=== PATIENT | female | born 1950 | race Caucasian/White ===

== ENCOUNTER 2017-02-01 21:06 | Emergency (ER) | payer OTHER ==
--- NOTE | 2017-02-01 21:25 | PDOC ---
History of Present Illness - History of Present Illness Initial Comments: 02/01/17 22:56 The patient is 66 year old female with a past medical hx of HTN, HLD, and breast cancer s/p mastectomy who presents to the ED complaining of diffuse abdominal pain since this evening. The patient notes the pain came on all of a sudden and is very severe. She reports associated nausea but denies any vomiting. The patient denies fever, chills The patient denies chest pain, SOB Surgical: Colon and mastectomy Allergies: NKDA <Gail Dumont - Last Filed: 02/02/17 00:20> <Rianna Mejia - Last Filed: 02/02/17 01:38> - General Stated Complaint: ABDOMINAL PAIN Time Seen by Provider: 02/01/17 21:17 Past History <Gail Dumont - Last Filed: 02/02/17 00:20> - Past Medical History Anemia: No Asthma: No Cancer: Yes (Colon Ca, Abelardo Breast Ca) Cardiac Disorders: No CVA: No COPD: No CHF: No Dementia: No Diabetes: No GI Disorders: No Disorders: No HTN: Yes Hypercholesterolemia: Yes Liver Disease: No Seizures: No Thyroid Disease: No - Surgical History Abdominal Surgery: Yes (Colon Resection 1999) Appendectomy: No Cardiac Surgery: No Cholecystectomy: No Lung Surgery: No Neurologic Surgery: No Orthopedic Surgery: No - Psycho/Social/Smoking Cessation Hx Anxiety: No Suicidal Ideation: No Smoking Status: No Smoking History: Never smoked Have you smoked in the past 12 months: No Number of Cigarettes Smoked Daily: 0 Hx Alcohol Use: No Drug/Substance Use Hx: No Substance Use Type: None Hx Substance Use Treatment: No <Rianna Mejia - Last Filed: 02/02/17 01:38> - Past Medical History Allergies/Adverse Reactions: Allergies Allergy/AdvReac Type Severity Reaction Status Date / Time No Known Allergies Allergy Verified 02/01/17 21:31 Home Medications: Ambulatory Orders Atorvastatin Ca [Lipitor] 20 mg PO DAILY 07/24/13 Losartan Potassium [Cozaar] 50 mg PO DAILY 07/24/13 Review of Systems - Review of Systems Able to Perform ROS?: Yes Comments:: 02/01/17 22:57 CONSTITUTIONAL: Absent: fever, chills, diaphoresis, generalized weakness, malaise, loss of appetite HEENT: Absent: rhinorrhea, nasal congestion, throat pain, throat swelling, difficulty swallowing, mouth swelling, ear pain, eye pain, visual Changes CARDIOVASCULAR: Absent: chest pain, syncope, palpitations, irregular heart rate, lightheadedness , peripheral edema RESPIRATORY: Absent: cough, shortness of breath, dyspnea with exertion, orthopnea, wheezing, stridor, hemoptysis GASTROINTESTINAL: +Abdominal pain, nausea. Absent: abdominal distension, vomiting, diarrhea, constipation, melena, hematochezia GENITOURINARY: Absent: dysuria, frequency, urgency, hesitancy, hematuria, flank pain, genital pain MUSCULOSKELETAL: Absent: myalgia, arthralgia, joint swelling SKIN: Absent: rash, itching, pallor NEUROLOGIC: Absent: headache, focal weakness or paresthesias, dizziness, unsteady gait, seizure, mental status changes, bladder or bowel incontinence PSYCHIATRIC: Absent: anxiety, depression, suicidal or homicidal ideation, hallucinations. <Gail Dumont - Last Filed: 02/02/17 00:20> *Physical Exam - Vital Signs Last Vital Signs Temp Pulse Resp BP Pulse Ox 97.0 F L 78 14 143/72 100 02/01/17 21:32 02/01/17 21:32 02/01/17 21:32 02/01/17 21:32 02/01/17 21:32 - Physical Exam Comments: 02/01/17 22:57 GENERAL: +Appears uncomfortable. Well developed, well nourished. Awake and alert. HEENT: Normocephalic, atraumatic. PERRLA, EOMI. No conjunctival pallor. Sclera are non- icteric. Moist mucous membranes. Oropharynx is clear. NECK: Supple. Full ROM. No JVD. Carotid pulses 2+ and symmetric, without bruits. No thyromegaly. No lymphadenopathy. CARDIOVASCULAR: Regular rate and rhythm. No murmurs, rubs, or gallops. Distal pulses are 2+ and symmetric. PULMONARY: No evidence of respiratory distress. Lungs clear to auscultation bilaterally. No wheezing, rales or rhonchi. ABDOMINAL: +Mild diffuse tenderness. Soft. Non-distended. No rebound or guarding. No organomegaly. Normoactive bowel sounds. MUSCULOSKELETAL Normal range of motion at all joints. No bony deformities or tenderness. No CVA tenderness. EXTREMITIES: No cyanosis. No clubbing. No edema. No calf tenderness. SKIN: Warm and dry. Normal capillary refill. No rashes. No jaundice. NEUROLOGICAL: Alert, awake, appropriate. Cranial nerves 2-12 intact. No deficits to light touch and temperature in face, upper extremities and lower extremities. No motor deficits in the in face, upper extremities and lower extremities. PSYCHIATRIC: Cooperative. Good eye contact. Appropriate mood and affect. <Gail Dumont - Last Filed: 02/02/17 00:20> Heart Score/ECG Review - ECG Impressions Comment:: 02/01/17 23:53 EKG performed at 22:19 NSR at a rate of 70 BPM <Gail Dumont - Last Filed: 02/02/17 00:20> ED Treatment Course - LABORATORY CBC & Chemistry Diagram: 02/01/17 21:42 02/01/17 21:42 - ADDITIONAL ORDERS Additional order review: Laboratory Results 02/01/17 02/01/17 02/01/17 21:42 21:42 21:42 INR 1.01 Sodium Potassium Chloride Carbon Dioxide Anion Gap BUN Creatinine Creat Clearance w eGFR Random Glucose Lactic Acid 1.166 Calcium Total Bilirubin AST ALT Alkaline Phosphatase Creatine Kinase 124 Troponin I < 0.02 Total Protein Albumin Lipase 02/01/17 21:42 INR Sodium 140 Potassium 5.5 H D Chloride 100 Carbon Dioxide 33 H Anion Gap 7 L BUN 18 D Creatinine 0.9 D Creat Clearance w eGFR > 60 Random Glucose 140 H D Lactic Acid Calcium 9.3 Total Bilirubin 0.5 AST 118 H D ALT 67 D Alkaline Phosphatase 72 D Creatine Kinase Troponin I Total Protein 6.7 Albumin 3.7 Lipase 220 02/01/17 21:42 RBC 4.48 MCV 82.8 MCHC 33.4 RDW 14.5 MPV 7.2 L Neutrophils % 72.6 D Lymphocytes % 19.5 D Monocytes % 6.7 Eosinophils % 0.7 Basophils % 0.5 - RADIOLOGY Radiograph Interpretation: 02/01/17 23:09 Portable chest x ray A frontal view of the chest was obtained. Compared to prior chest x-ray dated 10/19/2016 The cardiac silhouette is within normal limits in size. The lung is clear. There are multiple surgical metallic clips projecting over the left hemithorax and right axilla. Mediastinum and visualized osseous structures appear intact . Impression: Unremarkable examination without evidence of acute lung disease Reported By: Meet Cerrato MD 02/01/17 2230 02/02/17 00:20 CT angiogram of the abdomen pelvis A post intravenous contrast CT angiogram of the abdomen pelvis was performed in arterial and venous phase. Coronal and sagittal reformatted as well as minute images were obtained. Compared to prior CT scan of the abdomen pelvis dated 01/23/2016 There are atheromatous calcified plaques in the distal abdominal aorta wall. There is normal enhancement of the distal thoracic and abdominal aorta down through its bifurcation without evidence of aneurysmal dilatation or dissection. Normal enhancement of the celiac and superior mesenteric artery as well as their branches. Normal enhancement of a right and double left renal artery. The inferior mesenteric artery is not clearly delineated. Included lower lung appears unremarkable. Status post cholecystectomy. The liver and spleen are within normal limits in size. Mild dilatation of central intrahepatic bile ducts are present. The stomach is adequately distended without wall thickening. Evaluation of the pancreas, both adrenal glands and both kidneys appear unremarkable.There is no evidence of small bowel obstruction or wall thickening. Normal-appearing terminal ileum and appendix. Moderate amount of fecal residue in the entire colon suggestive of constipation. Surgical sutures again noted around the rectosigmoid junction and multiple surgical metallic clips in the pelvis. Normal size uterus. Partially distended urinary bladder without wall thickening. Moderate degenerative disc disease at L5-S1 level. Visualized osseous structures appear intact. Mild degenerative changes in both hip joints. Impression: Normal enhancement of the abdominal aorta down through its bifurcation as well as normal enhancement of the celiac artery and superior mesenteric artery. Inferior mesenteric artery is not definitely delineated on this examination. There is no evidence of small bowel obstruction. Fluid-filled small bowel loops are the may represent ileus. There is no thickening of the small or large bowel wall to suggest ischemia. No free air or free fluid in the abdomen pelvis. Correlate clinically to determine further evaluation Reported By: Meet Cerrato MD 02/02/17 0006 - Medications Given in the ED: ED Medications Discontinued Medications Generic Name Dose Route Start Last Admin Trade Name Freq PRN Reason Stop Dose Admin Sodium Chloride 1,000 mls @ 1,000 mls/hr 02/01/17 21:30 02/01/17 21:51 Normal Saline - IV 02/01/17 22:29 1,000 mls/hr ASDIR STA Administration Piperacillin Sod/Tazobactam 50 mls @ 100 mls/hr 02/01/17 21:33 02/01/17 21:53 Sod 3.375 gm/ Dextrose IVPB 02/01/17 22:02 100 mls/hr ONCE ONE Administration Protocol Ondansetron HCl 4 mg 02/01/17 21:30 02/01/17 21:51 Zofran Injection IVPB 02/01/17 21:31 4 mg ONCE ONE Administration <Gail Dumont - Last Filed: 02/02/17 00:20> - LABORATORY CBC & Chemistry Diagram: 02/01/17 21:42 02/01/17 21:42 <Rianna Mejia - Last Filed: 02/02/17 01:38> Medical Decision Making - Medical Decision Making 02/02/17 01:17 this 66 yo fmeale dev sudden severe diffuse abd pain 30 minutes prior to arrival. BIBA with severe abd pain, pain out of proportion to exam -no focal abd pain but diffuse abd pain w nausea -she DENIED any sob,chest pain,fever,chills,back pain -she recently had dental work done and 30 minutes before she dev these symptoms she took her percocet and antibiotics psh mastectomy,cholecystectomy cbc is normal -no fever comp reviewed ,the k=5.5 ct scan abd/pel: NEGATIVE FOR ANY ISCHEMIA,there is no evidence for appendicitis, there is no sbo. there were no findings for acute abdominal or pelvic etoilogy - ekg was nsr @ 70 02/02/17 01:31 pt's abd pain completely resolved and she is requesting to go home <Rianna Mejia - Last Filed: 02/02/17 01:38> *DC/Admit/Observation/Transfer - Attestations Scribe Attestion: 02/01/17 22:56 Documentation prepared by Gail Dumont, acting as medical billing representative for Rianna Mejia MD/DO. <Gail Dumont - Last Filed: 02/02/17 00:20> <Rianna Mejia - Last Filed: 02/02/17 01:38> Diagnosis at time of Disposition: Abdominal pain Qualifiers: Abdominal location: generalized Qualified Code(s): R10.84 - Generalized abdominal pain - Discharge Dispostion Disposition: HOME Condition at time of disposition: Stable - Referrals Referrals: Jazz Robb [Primary Care Provider] - - Patient Instructions Printed Discharge Instructions: DI for Abdominal Pain-Adult Additional Instructions: You need to have your doctor repeat your labs to check your potassium level Return to the emergency department if you develop any worsening symptoms
[2017-02-01] MEDS ORDERED: ONDANSETRON 4 MG/2 ML VIAL IVPB ONE (21:30)
[2017-02-01] MEDS ORDERED: SODIUM CHLORIDE 1,000 ML IV STA (21:30)
[2017-02-01] MEDS ORDERED: PIPERACILLIN/TAZOB 3.375 GM 3.375 GM in DEXTROSE 5%-WATER - 50 ML IVPB ONE (21:33)
[2017-02-01 21:34] VITALS: PULSE 78; TEMP 97
[2017-02-01] MEDS ORDERED: ONDANSETRON 4 MG/2 ML VIAL ONE (21:36)
[2017-02-01] MEDS ORDERED: PIPERACILLIN/TAZOB 3.375 GM 50 ML IVPB ONE (21:37)
[2017-02-01 22:17] LABS: INR 1.01 (0.82-1.09); PROTHROMBIN TIME (PATIENT) 11.1 SEC (9.98-11.88)
[2017-02-01 22:19] LABS: BASOPHIL 0.5 % (0-2.0); EOSINOPHIL 0.7 % (0-4.5); MCH 27.6 pg (25.7-33.7); MCHC 33.4 g/dl (32.0-36.0); MEAN CELL VOLUME 82.8 fl (80-96); MEAN PLT VOLUME 7.2 fl (7.5-11.1); NEUTROPHILS 72.6 % (42.8-82.8); PLATELET COUNT 201 K/MM3 (134-434); RDW 14.5 % (11.6-15.6)
[2017-02-01 22:35] LABS: ALBUMIN 3.7 g/dl (3.4-5.0); ANION GAP 7 (8-16); CALCIUM 9.3 mg/dL (8.5-10.1); CO2 33 mmol/L (21-32); CREATININE 0.9 mg/dL (0.55-1.02); GLUCOSE,RANDOM 140 mg/dL (74-106); SGOT/AST 118 U/L (15-37); SGPT/ALT 67 U/L (12-78)
[2017-02-01 22:37] LABS: ALK PHOS 72 U/L (45-117); BILIRUBIN,TOTAL 0.5 mg/dL (0.2-1.0); TOT PROT 6.7 g/dl (6.4-8.2)
[2017-02-01 22:40] LABS: TROPONIN I < 0.02 ng/ml (0.00-0.05)
[2017-02-02] MEDS ORDERED: SODIUM POLYSTYRENE SULFONATE 15 GM/60 ML BOTTLE PO ONE (00:15)
[2017-02-02] MEDS ORDERED: SODIUM POLYSTYRENE SULFONATE 15 GM/60 ML BOTTLE ONE (00:18)
[2017-02-02 00:53] VITALS: BP 102/58
[2017-02-02] MEDS ORDERED: MAG HYDROX/AL HYDROX/SIMETH 30 ML UNIT-DOSE CUP PO ONE (01:06)
[2017-02-02] MEDS ORDERED: MAG HYDROX/AL HYDROX/SIMETH 30 ML UNIT-DOSE CUP ONE (01:36)
--- NOTE | 2017-02-02 14:11 | EKG ---
Test Reason : Blood Pressure : / mmHG Vent. Rate : 070 BPM Atrial Rate : 070 BPM P-R Int : 152 ms QRS Dur : 070 ms QT Int : 404 ms P-R-T Axes : 053 005 029 degrees QTc Int : 436 ms NORMAL SINUS RHYTHM NORMAL ECG WHEN COMPARED WITH ECG OF 19-OCT-2016 12:25, NO SIGNIFICANT CHANGE WAS FOUND Confirmed by SONNY PERALTA MD ([id number]) on 02/02/2017 2:11:08 PM Referred By: Confirmed By:SONNY PERALTA MD
== END 2017-02-02 01:39 | disposition home or self-care (01) ==
LOC: JER 21:06
PROC: 3E03329 Introduction of Other Anti-infective into Peripheral Vein, Percutaneous Approach (ICD-10-PCS; principal; 2017-02-01)
PROC: 3E033GC Introduction of Other Therapeutic Substance into Peripheral Vein, Percutaneous Approach (ICD-10-PCS; 2017-02-01)
PROC: 3E0337Z Introduction of Electrolytic and Water Balance Substance into Peripheral Vein, Percutaneous Approach (ICD-10-PCS; 2017-02-01)
DX: R10.84 Generalized abdominal pain (principal); I10 Essential (primary) hypertension; E78.5 Hyperlipidemia, unspecified; Z85.3 Personal history of malignant neoplasm of breast
CPT/HCPCS: 36415; 71010-TC; 74174-TC; 80053; 82550; 83605; 83690; 84484; 85025; 85610; 93005; 93010; 96361; 96365; 96375; 99282-25

== ENCOUNTER 2022-02-22 04:47 | Day surgery (SDC) | payer OTHER ==
[2022-02-17 11:25] VITALS: BMI 25.2
[2022-02-22 09:32] VITALS: TEMP 97
[2022-02-22 09:50] VITALS: PULSE 65
[2022-02-22 10:03] VITALS: BP 143/69
== END 2022-02-22 10:42 | disposition home or self-care (01) ==
LOC: JASU-ENDO 04:47
PROVIDERS: ATTEND Internal Medicine Gastroenterology
PROC: 0DBP8ZX Excision of Rectum, Via Natural or Artificial Opening Endoscopic, Diagnostic (ICD-10-PCS; principal; 2022-02-22 09:00)
DX: Z12.11 Encounter for screening for malignant neoplasm of colon (principal); K64.8 Other hemorrhoids; Z85.048 Personal history of other malignant neoplasm of rectum, rectosigmoid junction, and anus; Z98.0 Intestinal bypass and anastomosis status
CPT/HCPCS: 88305-TC

== ENCOUNTER 2024-01-09 04:15 | Day surgery (SDC) | payer OTHER ==
[2023-12-15 13:16] VITALS: BMI 24.7
[2024-01-09] MEDS ORDERED: LOSARTAN POTASSIUM 50 MG TABLET PO ONE (12:00)
[2024-01-09] MEDS: LOSARTAN POTASSIUM 50 MG TABLET PO ONE (12:15)
[2024-01-09] MEDS ORDERED: LIDOCAINE 1%/EPI 1:100000 (20 ML MULTI DOSE VIAL) ONE (13:51)
[2024-01-09] MEDS ORDERED: MIDAZOLAM HCL 2 MG/2 ML SINGLE DOSE VIAL ONE (14:13)
[2024-01-09] MEDS ORDERED: PROPOFOL 20 ML ONE (14:13)
[2024-01-09] MEDS ORDERED: ONDANSETRON 4 MG/2 ML VIAL ONE (14:42)
[2024-01-09] MEDS ORDERED: DEXAMETHASONE SOD PHOSPHATE 4 MG/1 ML VIAL ONE (14:42)
[2024-01-09] MEDS ORDERED: KETOROLAC TROMETHAMINE 30 MG/1 ML VIAL ONE (14:42)
[2024-01-09] MEDS ORDERED: ceFAZolin SODIUM 1 GM VIAL ONE (14:42)
[2024-01-09] MEDS: ceFAZolin SODIUM 1 GM VIAL IVPB ONE (14:44)
[2024-01-09] MEDS: LIDOCAINE 1%/EPI 1:100000 (50 ML MULTI DOSE VIAL) INF ONE (14:49)
[2024-01-09] MEDS ORDERED: ELECTROLYTE-148 SOLN 1,000 ML IV SCH (15:15)
[2024-01-09] MEDS ORDERED: oxyCODONE HCL 5 MG TABLET PO PRN (15:27)
[2024-01-09] MEDS ORDERED: ONDANSETRON 4 MG/2 ML VIAL IVPUSH PRN (15:27)
[2024-01-09] MEDS ORDERED: LACTATED RINGERS SOLUTION 1,000 ML IV SCH (15:30)
[2024-01-09 17:55] VITALS: RESP 18
[2024-01-09 18:26] VITALS: BP 172/87; PULSE 83; TEMP 97.3
== END 2024-01-09 18:45 | disposition home or self-care (01) ==
LOC: JASU-SURG 04:15
PROVIDERS: ATTEND Urology
PROC: 0TSD0ZZ Reposition Urethra, Open Approach (ICD-10-PCS; principal; 2024-01-09 14:00)
DX: N39.3 Stress incontinence (female) (male) (principal)
CPT/HCPCS: 57288; C1771; 94760

== ENCOUNTER 2024-10-07 12:01 | Emergency (ER) | payer OTHER ==
[2024-10-07 12:08] VITALS: BP 167/98; PULSE 76; RESP 18; TEMP 97.6; BMI 26.5
== END 2024-10-07 13:15 | disposition home or self-care (01) ==
LOC: JER 12:01
DX: H66.91 Otitis media, unspecified, right ear (principal); H92.01 Otalgia, right ear; R42 Dizziness and giddiness; H93.11 Tinnitus, right ear
CPT/HCPCS: 93005; 93010; 99283-25

== ENCOUNTER 2024-10-08 11:35 | Observation (INO) | payer OTHER ==
[2024-10-08 11:47] VITALS: RESP 18; BMI 26.5
[2024-10-08] MEDS ORDERED: MECLIZINE HCL 25 MG TABLET (FP) ONE (12:30)
[2024-10-08] MEDS ORDERED: ACETAMINOPHEN INJECTION 100 ML ONE (12:30)
[2024-10-08] MEDS ORDERED: ONDANSETRON 4 MG/2 ML VIAL ONE (12:30)
[2024-10-08] MEDS: ACETAMINOPHEN 1000 MG/100 ML BAG IVPB ONE (12:48)
[2024-10-08] MEDS: MECLIZINE HCL 25 MG TABLET (FP) PO ONE (12:48)
[2024-10-08] MEDS: ONDANSETRON 4 MG/2 ML VIAL IVPUSH ONE (12:48)
[2024-10-08] MEDS ORDERED: FAMOTIDINE 20 MG/50 ML IVPB 20 MG/50 ML MG IVPB ONE (12:49)
[2024-10-08 12:51] LABS: BASO % 0.5 % (0-2.0); EOS % 0.3 % (0-4.5); HEMOGLOBIN 12.4 GM/dL (10.7-15.3); LYMPH % 14.5 % (8-40); MCHC 33.7 g/dl (32.0-36.0); MEAN CELL VOLUME 80.2 fl (80-96); MEAN PLT VOLUME 7.3 fl (7.5-11.1); MONO % 4.8 % (3.8-10.2); NEUT % 79.9 % (42.8-82.8); PLATELET COUNT 247 10^3/uL (134-434); RBC 4.61 M/mm3 (3.60-5.2); RDW 15.1 % (11.6-15.6); WHITE BLOOD COUNT 6.7 K/mm3 (4.0-10.0)
[2024-10-08] MEDS: FAMOTIDINE 20 MG/50 ML IVPB 20 MG/50 ML MG IVPB ONE (12:51)
[2024-10-08 12:58] LABS: INR 0.98 (0.83-1.09); PROTHROMBIN TIME (PATIENT) 11.1 SEC (9.7-13.0)
[2024-10-08 13:01] LABS: ACTIVATED PTT 26.3 SECONDS (25.2-36.5)
[2024-10-08 13:08] LABS: POTASSIUM 4.4 mmol/L (3.5-5.1)
[2024-10-08 13:10] LABS: ALBUMIN 3.6 g/dl (3.4-5.0); CALCIUM 9.2 mg/dL (8.5-10.1); MAGNESIUM 2.1 mg/dL (1.8-2.4)
[2024-10-08 13:13] LABS: CREATININE 0.7 mg/dL (0.55-1.3); PHOSPHOROUS 2.8 mg/dL (2.5-4.9)
[2024-10-08 13:15] LABS: BILIRUBIN,TOTAL 0.6 mg/dL (0.2-1); TOT PROT 6.8 g/dl (6.4-8.2)
[2024-10-08 14:41] LABS: PH,URINE 7.5 (5.0-8.0); URINE APPEARANCE CLEAR; URINE BILIRUBIN NEGATIVE (NEGATIVE); URINE COLOR YELLOW; URINE GLUCOSE (UA) NEGATIVE (NEGATIVE); URINE KETONE 1+ (NEGATIVE); URINE LEUK ESTERASE NEGATIVE (NEGATIVE); URINE NITRITE NEGATIVE (NEGATIVE); URINE PROTEIN NEGATIVE (NEGATIVE); URINE UROBILINOGEN 0.2 mg/dL (0.2-1.0)
[2024-10-08] MEDS: AMOX TR/POT CLAV 875MG/125MG TABLETS (FP) PO SCH (18:39)
[2024-10-08] MEDS: ATORVASTATIN CA 20 MG TABLET (FP) PO SCH (21:19)
[2024-10-08] MEDS: HEPARIN NA (PORCINE) 5,000 UNITS/ML 1ML VIAL SQ SCH (21:19)
[2024-10-09] MEDS: LOSARTAN POTASSIUM 25 MG TABLET PO SCH (09:05)
[2024-10-09 15:13] VITALS: BP 119/63; PULSE 82; TEMP 98.1
== END 2024-10-09 17:39 | disposition home or self-care (01) ==
LOC: JER 11:35 → JERBED 15:36 → J6S 17:35
PROVIDERS: ADMIT Internal Medicine; ATTEND Internal Medicine
PROC: 3E033NZ Introduction of Analgesics, Hypnotics, Sedatives into Peripheral Vein, Percutaneous Approach (ICD-10-PCS; principal; 2024-10-08)
PROC: 3E023GC Introduction of Other Therapeutic Substance into Muscle, Percutaneous Approach (ICD-10-PCS; 2024-10-08)
PROC: 3E033GC Introduction of Other Therapeutic Substance into Peripheral Vein, Percutaneous Approach (ICD-10-PCS; 2024-10-08)
DX: H72.91 Unspecified perforation of tympanic membrane, right ear (principal); H66.90 Otitis media, unspecified, unspecified ear; H81.10 Benign paroxysmal vertigo, unspecified ear; H93.11 Tinnitus, right ear; I10 Essential (primary) hypertension; E78.5 Hyperlipidemia, unspecified; Z90.49 Acquired absence of other specified parts of digestive tract; N32.9 Bladder disorder, unspecified; Z85.038 Personal history of other malignant neoplasm of large intestine; Z85.3 Personal history of malignant neoplasm of breast
CPT/HCPCS: 0241U-QW; 36415; 70450-TC; 70551-TC; 71045-TC-FY; 80053; 81003; 83690; 83735; 84100; 84484; 85025; 85610; 85730; 86850; 86900; 86901; 87086; 93005; 93010; 96365; 96372; 96375; 99285-25; G0378; J0131; J1644